=== PATIENT | female | born 1940 | race Caucasian/White ===

== ENCOUNTER 2018-10-05 07:33 | Inpatient (IN) | payer OTHER | END 2018-10-08 15:11 | disposition home or self-care (01) | LOC: TELE-WESTW 10-06 14:16 → ER 07:33 → TELE 07:34 | DX: I21.4 Non-ST elevation (NSTEMI) myocardial infarction (principal); E87.1 Hypo-osmolality and hyponatremia; E44.1 Mild protein-calorie malnutrition; I10 Essential (primary) hypertension; E03.9 Hypothyroidism, unspecified; R00.1 Bradycardia, unspecified ==

== ENCOUNTER 2020-03-19 22:40 | Inpatient (IN) | payer OTHER ==
[~2020-03-19] VITALS: Ht 165.1 cm; Wt 75.4 kg
[~2020-03-19 22:40] MED LIST: AML5T PO; ASPI-394 PO; ATOR20TA50 PO; LEVO75TA6 PO; LISI-648 PO
[2020-03-20 00:28] LABS: Basophils # (auto) 0.2 10 ^3/uL (0-0.2); Eosinophils # (auto) 0 10 ^3/uL (0-0.8); Eosinophils % (auto) 0.1 % (0.0-7.0); Hematocrit 44.2 % (36.0-46.0); Hemoglobin 14.5 g/dL (12.2-16.2); Lymphocytes % (auto) 5.2 % (10.0-50.0); Mean Corpuscular Hemoglobin 30.5 pg (28.0-32.0); Mean Corpuscular Hgb Conc. 32.7 g/dL (32.0-36.0); Mean Corpuscular Volume 93.1 fL (80.0-100.0); Monocytes # (auto) 0.7 10 ^3/uL (0-1.3); Monocytes % (auto) 3.4 % (0.0-12.0); Neutrophils # (auto) 17.7 10 ^3/uL (1.6-8.6); Neutrophils % (auto) 90.3 % (37.0-80.0); Nucleated Red Blood Cells % 0.1 %; Platelet Count (auto) 315 10^3/uL (140-450); Red Blood Cells 4.74 10^6/uL (4.0-5.20); Red Cell Distribution Width 14.9 % (11.8-14.3); White Blood Cell 19.6 10^3/uL (4.4-10.8)
[2020-03-20 00:45] LABS: Alanine Aminotransferase 15 U/L (13-56); Albumin 3.7 g/dL (3.4-5.0); Amylase 56 U/L (25-115); Anion Gap 9 (5-15); Aspartate Aminotransferase 15 U/L (15-37); BUN/Creatinine Ratio 21.9; Blood Urea Nitrogen 25 mg/dL (7-18); Calcium 9.6 mg/dL (8.5-10.1); Carbon Dioxide 26 mmol/L (21-32); Chloride 103 mmol/L (98-107); GFR African American 59 mL/min; GFR Non-African American 49 mL/min; Glucose 119 mg/dL (74-106); Lipase 107 U/L (73-393); Potassium 3.8 mmol/L (3.5-5.1); Sodium 138 mmol/L (136-145)
[2020-03-20 00:50] LABS: Alkaline Phosphatase 68 U/L (45-117); Bilirubin, Total 0.5 mg/dL (0.2-1.0); Total Protein 7.2 g/dL (6.4-8.2)
[2020-03-20 00:55] LABS: INR 1.04 (0.9-1.15); Partial Thromboplastin Time 27.9 sec (23.0-31.2)
[2020-03-20] MEDS ORDERED: MORPHINE SULF INJ 2 MG/ML SYRINGE 1ML IV ONE ×2 (04:00→05:45)
[2020-03-20] MEDS ORDERED: SODIUM CHLORIDE 0.9% 1,000 ML IV ONE ×3 (04:00→13:30)
[2020-03-20] MEDS ORDERED: ONDANSETRON HCL 4 MG/2 ML VIAL IV ONE ×2 (04:00→11:30)
[2020-03-20] MEDS ORDERED: PIPERACILLIN-TAZOB 3.375GM 100 ML IV ONE (05:45)
[2020-03-20] MEDS ORDERED: MORPHINE SULFATE 4 MG/ML SYR/VIAL IV ONE (11:30)
[2020-03-20] MEDS ORDERED: ACETAMINOPHEN 650 MG RECT SUPP PR PRN (13:30)
[2020-03-20] MEDS ORDERED: NITROGLYCERIN 0.4 MG SL TAB SL PRN (13:30)
[2020-03-20] MEDS ORDERED: MORPHINE SULF INJ 2 MG/ML SYRINGE 1ML IV PRN (13:30)
[2020-03-20] MEDS ORDERED: LABETALOL HCL 5 MG/ML 4ML SYRINGE IV ONE (13:30)
[2020-03-20] MEDS ORDERED: GASTROGRAFIN 120 ML SOL ONE (14:03)
[2020-03-20] MEDS: D5W/ SOD CHL 0.9%/KCL 20MEQ 1,000 ML IV SCH ×2 (16:21→21:30)
[2020-03-20] MEDS: ONDANSETRON HCL 4 MG/2 ML VIAL IV PRN (17:13)
[2020-03-20 17:42] LABS: Urine Bacteria NONE SEEN /hpf (None Seen); Urine Blood 1+ /uL (Negative); Urine Hyaline Cast FEW /lpf (0 - 2); Urine Mucus FEW (None Seen); Urine Specific Gravity 1.019 (1.001-1.035); Urine WBC 2 /hpf (0 - 5)
[2020-03-20] MEDS: hydrALAZINE HCL 20 MG/ML VL IV PRN (17:52)
[2020-03-20] MEDS: PIPERACILLIN-TAZOB 3.375GM 100 ML IV SCH (18:03)
[2020-03-20] MEDS: MORPHINE SULF INJ 2 MG/ML SYRINGE 1ML IV PRN (19:09)
[2020-03-20 23:00] VITALS: BP 166/100
[2020-03-20] MEDS ORDERED: LEVO50TA7 PO (23:49)
[2020-03-21] MEDS: ONDANSETRON HCL 4 MG/2 ML VIAL IV PRN (00:12)
[2020-03-21] MEDS: PIPERACILLIN-TAZOB 3.375GM 100 ML IV SCH ×4 (00:14→18:49)
[2020-03-21 05:00] VITALS: BP 130/82
[2020-03-21] MEDS: D5W/ SOD CHL 0.9%/KCL 20MEQ 1,000 ML IV SCH ×2 (05:30→21:45)
[2020-03-21 06:28] LABS: Basophils # (auto) 0 10 ^3/uL (0-0.2); Basophils % (auto) 0.2 % (0.0-2.0); Eosinophils # (auto) 0 10 ^3/uL (0-0.8); Hematocrit 41.5 % (36.0-46.0); Hemoglobin 14.2 g/dL (12.2-16.2); Lymphocytes # (auto) 0.6 10 ^3/uL (0.4-5.4); Lymphocytes % (auto) 6.2 % (10.0-50.0); Mean Corpuscular Hemoglobin 31.6 pg (28.0-32.0); Mean Corpuscular Hgb Conc. 34.1 g/dL (32.0-36.0); Mean Corpuscular Volume 92.5 fL (80.0-100.0); Monocytes # (auto) 0.9 10 ^3/uL (0-1.3); Monocytes % (auto) 8.7 % (0.0-12.0); Neutrophils # (auto) 8.4 10 ^3/uL (1.6-8.6); Neutrophils % (auto) 84.9 % (37.0-80.0); Platelet Count (auto) 277 10^3/uL (140-450); Red Blood Cells 4.49 10^6/uL (4.0-5.20); Red Cell Distribution Width 14.7 % (11.8-14.3); White Blood Cell 9.9 10^3/uL (4.4-10.8)
[2020-03-21 06:40] LABS: Potassium 3.5 mmol/L (3.5-5.1)
[2020-03-21 08:00] VITALS: BP 147/85
[2020-03-21] MEDS: FAMOTIDINE (10MG/ML) 2ML VL IV SCH (10:26)
[2020-03-21] MEDS: MORPHINE SULF INJ 2 MG/ML SYRINGE 1ML IV PRN ×2 (10:27→17:05)
[2020-03-21 16:00] VITALS: BP 154/71
[2020-03-21] MEDS ORDERED: VANCOMYCIN 1GM/250ML 250 ML IV ONE (18:15)
[2020-03-21 20:00] VITALS: BP 207/90
[2020-03-21 22:03] VITALS: BP 158/75
[2020-03-22] MEDS: PIPERACILLIN-TAZOB 3.375GM 100 ML IV SCH ×4 (00:32→18:38)
[2020-03-22] MEDS: D5W/ SOD CHL 0.9%/KCL 20MEQ 1,000 ML IV SCH ×3 (00:32→17:45)
[2020-03-22 05:00] VITALS: BP 145/72
[2020-03-22 07:24] LABS: Basophils # (auto) 0 10 ^3/uL (0-0.2); Basophils % (auto) 0.3 % (0.0-2.0); Eosinophils # (auto) 0.1 10 ^3/uL (0-0.8); Hematocrit 41.9 % (36.0-46.0); Hemoglobin 14.1 g/dL (12.2-16.2); Lymphocytes # (auto) 1.4 10 ^3/uL (0.4-5.4); Lymphocytes % (auto) 14.2 % (10.0-50.0); Mean Corpuscular Hemoglobin 31.6 pg (28.0-32.0); Mean Corpuscular Hgb Conc. 33.7 g/dL (32.0-36.0); Mean Corpuscular Volume 93.9 fL (80.0-100.0); Monocytes # (auto) 1.1 10 ^3/uL (0-1.3); Monocytes % (auto) 10.9 % (0.0-12.0); Neutrophils # (auto) 7.3 10 ^3/uL (1.6-8.6); Neutrophils % (auto) 73.6 % (37.0-80.0); Nucleated Red Blood Cells % 0.1 %; Platelet Count (auto) 246 10^3/uL (140-450); Red Blood Cells 4.46 10^6/uL (4.0-5.20); Red Cell Distribution Width 15.3 % (11.8-14.3); White Blood Cell 9.9 10^3/uL (4.4-10.8)
[2020-03-22 07:49] LABS: Potassium 3.5 mmol/L (3.5-5.1)
[2020-03-22 07:54] LABS: BUN/Creatinine Ratio 35.2
[2020-03-22 08:00] VITALS: BP 155/72
[2020-03-22] MEDS ORDERED: VANCOMYCIN 1GM/250ML 250 ML IV ONE (09:00)
[2020-03-22] MEDS: FAMOTIDINE (10MG/ML) 2ML VL IV SCH (09:43)
[2020-03-22] MEDS: MORPHINE SULF INJ 2 MG/ML SYRINGE 1ML IV PRN ×3 (09:44→22:45)
[2020-03-22] MEDS ORDERED: LEVOTHYROXINE SODIUM 100 MCG/5 ML INJ IV ONE (14:15)
[2020-03-22 16:00] VITALS: BP 133/99
[2020-03-22] MEDS ORDERED: LACTULOSE 20Gm/30ML SOLN PR ONE (18:00)
[2020-03-22] MEDS ORDERED: LACTULOSE 10g/15ml SOLN PR ONE (18:30)
[2020-03-22 22:00] VITALS: BP 148/76
[2020-03-23] MEDS: D5W/ SOD CHL 0.9%/KCL 20MEQ 1,000 ML IV SCH ×3 (03:45→23:45)
[2020-03-23 05:30] VITALS: BP 141/77
[2020-03-23] MEDS: PIPERACILLIN-TAZOB 3.375GM 100 ML IV SCH ×5 (05:33→23:14)
[2020-03-23] MEDS: LEVOTHYROXINE SODIUM 88 MCG TAB PO SCH ×2 (06:24→06:26)
[2020-03-23 08:00] VITALS: BP 153/87
[2020-03-23] MEDS: FAMOTIDINE (10MG/ML) 2ML VL IV SCH (08:54)
[2020-03-23] MEDS: MORPHINE SULF INJ 2 MG/ML SYRINGE 1ML IV PRN ×3 (08:55→23:14)
[2020-03-23 16:00] VITALS: BP 125/82
[2020-03-23 22:00] VITALS: BP 167/66
[2020-03-24 05:00] VITALS: BP 142/69
[2020-03-24] MEDS: LEVOTHYROXINE SODIUM 88 MCG TAB PO SCH (05:30)
[2020-03-24] MEDS: PIPERACILLIN-TAZOB 3.375GM 100 ML IV SCH ×4 (05:30→23:44)
[2020-03-24 08:00] VITALS: BP 146/93
[2020-03-24] MEDS: MORPHINE SULF INJ 2 MG/ML SYRINGE 1ML IV PRN ×3 (08:16→23:18)
[2020-03-24] MEDS ORDERED: GOLYTELY 4L KIT PO ONE (10:15)
[2020-03-24] MEDS: FAMOTIDINE (10MG/ML) 2ML VL IV SCH (10:59)
[2020-03-24 16:00] VITALS: BP 139/94
[2020-03-24] MEDS: D5W/ SOD CHL 0.9%/KCL 20MEQ 1,000 ML IV SCH ×2 (17:43→21:28)
[2020-03-24] MEDS: hydrALAZINE HCL 20 MG/ML VL IV PRN (21:40)
[2020-03-24 22:00] VITALS: BP 181/91
[2020-03-24] MEDS: ONDANSETRON HCL 4 MG/2 ML VIAL IV PRN (23:18)
[2020-03-25] MEDS: MORPHINE SULF INJ 2 MG/ML SYRINGE 1ML IV PRN (03:42)
[2020-03-25] MEDS: ONDANSETRON HCL 4 MG/2 ML VIAL IV PRN (05:45)
[2020-03-25] MEDS: PIPERACILLIN-TAZOB 3.375GM 100 ML IV SCH ×3 (05:45→18:04)
[2020-03-25] MEDS: D5W/ SOD CHL 0.9%/KCL 20MEQ 1,000 ML IV SCH ×3 (05:45→18:04)
[2020-03-25] MEDS: LEVOTHYROXINE SODIUM 88 MCG TAB PO SCH (05:46)
[2020-03-25 08:05] VITALS: BP 153/84
[2020-03-25] MEDS: FAMOTIDINE (10MG/ML) 2ML VL IV SCH (09:57)
[2020-03-25 12:59] LABS: INR 1.61 (0.9-1.15); Partial Thromboplastin Time 31.2 sec (23.0-31.2)
[2020-03-25] MEDS ORDERED: MIDAZOLAM HCL 1MG/1ML-2 ML VIAL ONE (13:31)
[2020-03-25] MEDS ORDERED: LIDOCAINE 2% (LOCAL ANESTH.) PF 5ml SDV ONE (13:32)
[2020-03-25] MEDS ORDERED: fentaNYL CITRATE 100 MCG/2 ML VL ONE (13:41)
[2020-03-25] MEDS ORDERED: PHENYLEPHRINE HCL 10 MG/ML VL ONE (13:49)
[2020-03-25] MEDS ORDERED: SODIUM CHLORIDE LOCK 10 ML ONE (13:49)
[2020-03-25] MEDS ORDERED: GLYCOPYRROLATE 0.2 MG/ML 1ML VIAL ONE (14:55)
[2020-03-25] MEDS ORDERED: HYDROmorphone HCL 2 MG/ML VL ONE (15:01)
[2020-03-25] MEDS ORDERED: HYDROmorphone HCL 2 MG/ML VL IV PRN (15:45)
[2020-03-25] MEDS ORDERED: ONDANSETRON HCL 4 MG/2 ML VIAL IV PRN (15:45)
[2020-03-25 17:35] VITALS: BP 121/37
[2020-03-25 20:00] VITALS: BP 102/70
[2020-03-26] MEDS: HYDROmorphone HCL 2 MG/ML VL IV PRN ×3 (00:17→20:15)
[2020-03-26] MEDS: PIPERACILLIN-TAZOB 3.375GM 100 ML IV SCH ×4 (00:18→20:24)
[2020-03-26] MEDS ORDERED: ALBUMIN 5% 250 ML IV ONE ×2 (00:44→00:45)
[2020-03-26 02:34] LABS: Hematocrit 41.9 % (36.0-46.0); Hemoglobin 13.8 g/dL (12.2-16.2)
[2020-03-26] MEDS: D5W/ SOD CHL 0.9%/KCL 20MEQ 1,000 ML IV SCH ×3 (02:41→20:23)
[2020-03-26 05:19] VITALS: BP 98/49
[2020-03-26] MEDS: LEVOTHYROXINE SODIUM 88 MCG TAB PO SCH (06:06)
[2020-03-26 06:52] LABS: Albumin 2.1 g/dL (3.4-5.0); Calcium 7.4 mg/dL (8.5-10.1); Potassium 3.1 mmol/L (3.5-5.1)
[2020-03-26 07:01] LABS: Basophils # (auto) 0 10 ^3/uL (0-0.2); Basophils % (auto) 0.1 % (0.0-2.0); Eosinophils # (auto) 0 10 ^3/uL (0-0.8); Hematocrit 39.6 % (36.0-46.0); Hemoglobin 12.8 g/dL (12.2-16.2); Lymphocytes # (auto) 0.9 10 ^3/uL (0.4-5.4); Lymphocytes % (auto) 4.2 % (10.0-50.0); Mean Corpuscular Hemoglobin 30.4 pg (28.0-32.0); Mean Corpuscular Hgb Conc. 32.2 g/dL (32.0-36.0); Mean Corpuscular Volume 94.4 fL (80.0-100.0); Monocytes # (auto) 0.9 10 ^3/uL (0-1.3); Monocytes % (auto) 4.1 % (0.0-12.0); Neutrophils # (auto) 19.6 10 ^3/uL (1.6-8.6); Neutrophils % (auto) 91.6 % (37.0-80.0); Platelet Count (auto) 226 10^3/uL (140-450); Red Blood Cells 4.19 10^6/uL (4.0-5.20); Red Cell Distribution Width 15.1 % (11.8-14.3); White Blood Cell 21.4 10^3/uL (4.4-10.8)
[2020-03-26 07:02] LABS: BUN/Creatinine Ratio 17.3; Bilirubin, Total 0.5 mg/dL (0.2-1.0); Total Protein 4.3 g/dL (6.4-8.2)
[2020-03-26 08:00] VITALS: BP 104/69
[2020-03-26 08:20] VITALS: BP 104/69
[2020-03-26] MEDS: FAMOTIDINE (10MG/ML) 2ML VL IV SCH (09:07)
[2020-03-26] MEDS ORDERED: CLINIMIX PER PHARMACY 0 ML IV SCH (11:15)
[2020-03-26] MEDS ORDERED: POTASSIUM CHLORIDE 20 MEQ, LIDOCAINE 1% (LOCAL ANESTH.) 2 ML in SODIUM CHL 0.9% 100 ML IV ONE (11:45)
[2020-03-26 13:23] LABS: Magnesium 1.8 mg/dL (1.6-2.6)
[2020-03-26 13:30] LABS: Phosphorus 3.9 mg/dL (2.5-4.90); Pre Albumin 8.9 mg/dL (20.0-40.0)
[2020-03-26 16:00] VITALS: BP 108/53
[2020-03-26] MEDS: AMINO ACID INFUSION IN D10W 1,000 ML IV NR ×2 (20:00→23:39)
[2020-03-26 22:00] VITALS: BP 117/43
[2020-03-26] MEDS: ACCU-CHEK COMFORT CURVE STRIP VI SCH (23:55)
[2020-03-26] MEDS: InsuLIN REG 1unit/0.01ml Soln (100units/ml) SC SCH (23:55)
[2020-03-27] MEDS ORDERED: DEXTROSE (50%) 50ML SYRG IV SCH
[2020-03-27 05:00] VITALS: BP 126/56
[2020-03-27] MEDS: PIPERACILLIN-TAZOB 3.375GM 100 ML IV SCH (05:02)
[2020-03-27] MEDS: InsuLIN REG 1unit/0.01ml Soln (100units/ml) SC SCH ×4 (05:02→23:24)
[2020-03-27] MEDS: ACCU-CHEK COMFORT CURVE STRIP VI SCH ×4 (05:03→23:24)
[2020-03-27] MEDS: LEVOTHYROXINE SODIUM 88 MCG TAB PO SCH (05:35)
[2020-03-27 07:12] LABS: Basophils # (auto) 0.1 10 ^3/uL (0-0.2); Basophils % (auto) 0.3 % (0.0-2.0); Eosinophils # (auto) 0 10 ^3/uL (0-0.8); Eosinophils % (auto) 0.1 % (0.0-7.0); Hemoglobin 11.7 g/dL (12.2-16.2); Lymphocytes # (auto) 0.7 10 ^3/uL (0.4-5.4); Lymphocytes % (auto) 3.4 % (10.0-50.0); Mean Corpuscular Hemoglobin 31.9 pg (28.0-32.0); Mean Corpuscular Hgb Conc. 34.4 g/dL (32.0-36.0); Mean Corpuscular Volume 92.6 fL (80.0-100.0); Monocytes # (auto) 1.3 10 ^3/uL (0-1.3); Monocytes % (auto) 6.4 % (0.0-12.0); Neutrophils # (auto) 18.1 10 ^3/uL (1.6-8.6); Neutrophils % (auto) 89.8 % (37.0-80.0); Platelet Count (auto) 199 10^3/uL (140-450); Red Blood Cells 3.67 10^6/uL (4.0-5.20); Red Cell Distribution Width 15.7 % (11.8-14.3); White Blood Cell 20.1 10^3/uL (4.4-10.8)
[2020-03-27 07:21] LABS: Albumin 1.9 g/dL (3.4-5.0); Calcium 7.5 mg/dL (8.5-10.1); Magnesium 1.7 mg/dL (1.6-2.6); Potassium 3.5 mmol/L (3.5-5.1)
[2020-03-27 07:23] LABS: BUN/Creatinine Ratio 14.6; Bilirubin, Total 0.3 mg/dL (0.2-1.0); Phosphorus 1.5 mg/dL (2.5-4.90); Total Protein 5.1 g/dL (6.4-8.2)
[2020-03-27] MEDS: D5W/ SOD CHL 0.9%/KCL 20MEQ 1,000 ML IV SCH (08:10)
[2020-03-27 08:12] VITALS: BP 124/68
[2020-03-27 08:20] VITALS: BP 124/68
[2020-03-27] MEDS ORDERED: POTASSIUM PHOSPHATE 26.4 MEQ in SODIUM CHL 0.9% 100 ML IV ONE (09:15)
[2020-03-27] MEDS ORDERED: SODIUM CHLORIDE 0.9% 250 ML IV ONE (11:00)
[2020-03-27] MEDS ORDERED: levoFLOXacin 250MG 50 ML IV ONE (11:15)
[2020-03-27] MEDS: SODIUM CHLORIDE 0.9% 1,000 ML IV SCH ×2 (11:18→21:51)
[2020-03-27] MEDS: FAMOTIDINE (10MG/ML) 2ML VL IV SCH (14:00)
[2020-03-27] MEDS: metroNIDAZOLE 500MG/100ML 100 ML IV SCH ×2 (14:03→21:51)
[2020-03-27 16:05] VITALS: BP 125/56
[2020-03-27] MEDS: AMINO ACID INFUSION IN D10W 1,000 ML IV NR ×2 (19:10→19:17)
[2020-03-27 22:00] VITALS: BP 152/77
[2020-03-28 05:00] VITALS: BP 145/66
[2020-03-28] MEDS: metroNIDAZOLE 500MG/100ML 100 ML IV SCH ×3 (05:05→22:00)
[2020-03-28] MEDS: InsuLIN REG 1unit/0.01ml Soln (100units/ml) SC SCH ×3 (05:09→18:00)
[2020-03-28] MEDS: ACCU-CHEK COMFORT CURVE STRIP VI SCH ×3 (05:10→18:20)
[2020-03-28] MEDS: LEVOTHYROXINE SODIUM 88 MCG TAB PO SCH (06:09)
[2020-03-28] MEDS: SODIUM CHLORIDE 0.9% 1,000 ML IV SCH ×2 (06:10→12:11)
[2020-03-28 06:52] LABS: Basophils # (auto) 0 10 ^3/uL (0-0.2); Basophils % (auto) 0.1 % (0.0-2.0); Eosinophils # (auto) 0.1 10 ^3/uL (0-0.8); Eosinophils % (auto) 0.3 % (0.0-7.0); Hemoglobin 10.9 g/dL (12.2-16.2); Lymphocytes # (auto) 0.6 10 ^3/uL (0.4-5.4); Lymphocytes % (auto) 3.3 % (10.0-50.0); Mean Corpuscular Hemoglobin 31.1 pg (28.0-32.0); Mean Corpuscular Hgb Conc. 34.2 g/dL (32.0-36.0); Monocytes # (auto) 0.5 10 ^3/uL (0-1.3); Monocytes % (auto) 2.5 % (0.0-12.0); Neutrophils # (auto) 17.9 10 ^3/uL (1.6-8.6); Neutrophils % (auto) 93.8 % (37.0-80.0); Platelet Count (auto) 204 10^3/uL (140-450); Red Blood Cells 3.52 10^6/uL (4.0-5.20); Red Cell Distribution Width 15.6 % (11.8-14.3); White Blood Cell 19.1 10^3/uL (4.4-10.8)
[2020-03-28 07:07] LABS: Albumin 1.8 g/dL (3.4-5.0); Calcium 7.7 mg/dL (8.5-10.1); Magnesium 1.7 mg/dL (1.6-2.6); Potassium 3.2 mmol/L (3.5-5.1)
[2020-03-28 07:11] LABS: Bilirubin, Total 0.3 mg/dL (0.2-1.0); Phosphorus 1.5 mg/dL (2.5-4.90); Total Protein 5.1 g/dL (6.4-8.2)
[2020-03-28 08:00] VITALS: BP 144/80
[2020-03-28] MEDS: FAMOTIDINE (10MG/ML) 2ML VL IV SCH (09:47)
[2020-03-28] MEDS: levoFLOXacin 250MG 50 ML IV SCH (09:47)
[2020-03-28] MEDS ORDERED: POTASSIUM CHLORIDE 20 MEQ, LIDOCAINE 1% (LOCAL ANESTH.) 2 ML in SODIUM CHL 0.9% 100 ML IV ONE (10:45)
[2020-03-28] MEDS ORDERED: POTASSIUM PHOSPHATE 30 MEQ in D5W 5% 250 ML IV ONE (11:00)
[2020-03-28 16:00] VITALS: BP 157/73
[2020-03-28] MEDS: ONDANSETRON HCL 4 MG/2 ML VIAL IV PRN (17:10)
[2020-03-28] MEDS: AMINO ACID INFUSION IN D10W 1,000 ML IV NR (18:21)
[2020-03-28] MEDS ORDERED: AMINO ACID INFUSION IN D10W 1,000 ML IV NR (20:00)
[2020-03-28 21:33] VITALS: BP 152/73
[2020-03-29] MEDS: SODIUM CHLORIDE 0.9% 1,000 ML IV SCH ×2 (00:05→10:45)
[2020-03-29 05:26] VITALS: BP 121/70
[2020-03-29] MEDS: metroNIDAZOLE 500MG/100ML 100 ML IV SCH ×3 (06:00→22:00)
[2020-03-29] MEDS: InsuLIN REG 1unit/0.01ml Soln (100units/ml) SC SCH ×4 (06:00→17:35)
[2020-03-29] MEDS: ACCU-CHEK COMFORT CURVE STRIP VI SCH ×4 (06:00→17:35)
[2020-03-29] MEDS: LEVOTHYROXINE SODIUM 88 MCG TAB PO SCH (07:00)
[2020-03-29 07:29] LABS: Basophils # (auto) 0 10 ^3/uL (0-0.2); Basophils % (auto) 0.3 % (0.0-2.0); Eosinophils # (auto) 0.1 10 ^3/uL (0-0.8); Eosinophils % (auto) 0.9 % (0.0-7.0); Hematocrit 30.6 % (36.0-46.0); Hemoglobin 10.6 g/dL (12.2-16.2); Lymphocytes # (auto) 0.7 10 ^3/uL (0.4-5.4); Lymphocytes % (auto) 5.1 % (10.0-50.0); Mean Corpuscular Hemoglobin 31.7 pg (28.0-32.0); Mean Corpuscular Hgb Conc. 34.7 g/dL (32.0-36.0); Mean Corpuscular Volume 91.5 fL (80.0-100.0); Monocytes # (auto) 0.6 10 ^3/uL (0-1.3); Neutrophils # (auto) 12.6 10 ^3/uL (1.6-8.6); Neutrophils % (auto) 89.7 % (37.0-80.0); Platelet Count (auto) 196 10^3/uL (140-450); Red Blood Cells 3.35 10^6/uL (4.0-5.20); Red Cell Distribution Width 15.6 % (11.8-14.3); White Blood Cell 14.1 10^3/uL (4.4-10.8)
[2020-03-29 07:50] LABS: Calcium 7.8 mg/dL (8.5-10.1); Potassium 3.3 mmol/L (3.5-5.1)
[2020-03-29 07:53] LABS: BUN/Creatinine Ratio 22.4
[2020-03-29 08:00] VITALS: BP 139/78
[2020-03-29] MEDS: levoFLOXacin 250MG 50 ML IV SCH (09:29)
[2020-03-29] MEDS: FAMOTIDINE (10MG/ML) 2ML VL IV SCH (09:29)
[2020-03-29] MEDS ORDERED: POTASSIUM CHLORIDE 20 MEQ, LIDOCAINE 1% (LOCAL ANESTH.) 2 ML in SODIUM CHL 0.9% 100 ML IV ONE (10:45)
[2020-03-29 11:15] LABS: Magnesium 1.6 mg/dL (1.6-2.6); Phosphorus 1.8 mg/dL (2.5-4.90)
[2020-03-29 11:19] LABS: Albumin 1.7 g/dL (3.4-5.0); Bilirubin, Direct 0.1 mg/dL (0-0.2)
[2020-03-29 11:21] LABS: Bilirubin, Total 0.3 mg/dL (0.2-1.0)
[2020-03-29] MEDS ORDERED: POTASSIUM PHOSPHATE 26.4 MEQ in SODIUM CHL 0.9% 100 ML IV ONE (13:00)
[2020-03-29] MEDS ORDERED: MAGNESIUM SULFATE 1GM/100ML 100 ML IV ONE (15:00)
[2020-03-29 16:00] VITALS: BP 143/70
[2020-03-29] MEDS ORDERED: AMINO ACID INFUSION IN D10W 1,000 ML IV NR (20:00)
[2020-03-29 22:26] VITALS: BP 157/80
[2020-03-30] MEDS: ACCU-CHEK COMFORT CURVE STRIP VI SCH ×4 (00:40→18:40)
[2020-03-30 05:30] VITALS: BP 151/94
[2020-03-30] MEDS: InsuLIN REG 1unit/0.01ml Soln (100units/ml) SC SCH ×4 (06:00→18:00)
[2020-03-30] MEDS: metroNIDAZOLE 500MG/100ML 100 ML IV SCH ×3 (06:02→23:49)
[2020-03-30] MEDS: LEVOTHYROXINE SODIUM 88 MCG TAB PO SCH (06:03)
[2020-03-30] MEDS: SODIUM CHLORIDE 0.9% 1,000 ML IV SCH (06:03)
[2020-03-30 07:28] LABS: Basophils # (auto) 0 10 ^3/uL (0-0.2); Basophils % (auto) 0.1 % (0.0-2.0); Eosinophils # (auto) 0.2 10 ^3/uL (0-0.8); Eosinophils % (auto) 1.7 % (0.0-7.0); Hematocrit 31.8 % (36.0-46.0); Hemoglobin 10.8 g/dL (12.2-16.2); Lymphocytes # (auto) 0.7 10 ^3/uL (0.4-5.4); Lymphocytes % (auto) 6.7 % (10.0-50.0); Mean Corpuscular Hemoglobin 31.2 pg (28.0-32.0); Mean Corpuscular Volume 91.9 fL (80.0-100.0); Monocytes # (auto) 0.9 10 ^3/uL (0-1.3); Monocytes % (auto) 8.4 % (0.0-12.0); Neutrophils % (auto) 83.1 % (37.0-80.0); Platelet Count (auto) 187 10^3/uL (140-450); Red Blood Cells 3.46 10^6/uL (4.0-5.20); White Blood Cell 10.8 10^3/uL (4.4-10.8)
[2020-03-30 07:45] LABS: Potassium 3.3 mmol/L (3.5-5.1)
[2020-03-30 07:46] LABS: Albumin 1.6 g/dL (3.4-5.0); Calcium 7.8 mg/dL (8.5-10.1); Magnesium 2.1 mg/dL (1.6-2.6)
[2020-03-30 07:53] LABS: BUN/Creatinine Ratio 27.1; Bilirubin, Direct 0.1 mg/dL (0-0.2); Bilirubin, Total 0.3 mg/dL (0.2-1.0); Phosphorus 1.8 mg/dL (2.5-4.90); Total Protein 4.8 g/dL (6.4-8.2)
[2020-03-30 08:00] VITALS: BP 147/61
[2020-03-30] MEDS: FAMOTIDINE (10MG/ML) 2ML VL IV SCH (10:38)
[2020-03-30] MEDS: levoFLOXacin 250MG 50 ML IV SCH (10:38)
[2020-03-30] MEDS ORDERED: POTASSIUM PHOSPHATE IV ONE (11:30)
[2020-03-30] MEDS ORDERED: D5W 5% IV ONE (11:30)
[2020-03-30] MEDS ORDERED: POTASSIUM PHOSPHATE 26.4 MEQ in SODIUM CHL 0.9% 100 ML IV ONE (12:00)
[2020-03-30 16:00] VITALS: BP 156/76
[2020-03-30 20:00] VITALS: BP 160/85
[2020-03-30] MEDS ORDERED: CLINIMIX PER PHARMACY IV NR ×5 (20:00)
[2020-03-30 22:00] VITALS: BP 160/85
[2020-03-31] MEDS: HYDROmorphone HCL 2 MG/ML VL IV PRN (00:38)
[2020-03-31] MEDS: ONDANSETRON HCL 4 MG/2 ML VIAL IV PRN (00:39)
[2020-03-31 05:00] VITALS: BP 162/75
[2020-03-31] MEDS: InsuLIN REG 1unit/0.01ml Soln (100units/ml) SC SCH ×4 (06:00→18:00)
[2020-03-31] MEDS: metroNIDAZOLE 500MG/100ML 100 ML IV SCH ×3 (06:04→22:00)
[2020-03-31] MEDS: SODIUM CHLORIDE 0.9% 1,000 ML IV SCH ×2 (06:04→23:14)
[2020-03-31] MEDS: ACCU-CHEK COMFORT CURVE STRIP VI SCH ×4 (06:04→18:00)
[2020-03-31] MEDS: LEVOTHYROXINE SODIUM 88 MCG TAB PO SCH (06:05)
[2020-03-31 07:54] LABS: Calcium 7.5 mg/dL (8.5-10.1); Potassium 3.2 mmol/L (3.5-5.1)
[2020-03-31 08:00] VITALS: BP 149/80
[2020-03-31 08:00] LABS: Albumin 1.7 g/dL (3.4-5.0); BUN/Creatinine Ratio 28.2; Bilirubin, Total 0.3 mg/dL (0.2-1.0); Magnesium 1.8 mg/dL (1.6-2.6); Phosphorus 2.5 mg/dL (2.5-4.90); Total Protein 4.7 g/dL (6.4-8.2)
[2020-03-31] MEDS ORDERED: POTASSIUM PHOSPHATE 44 MEQ in D5W 5% 250 ML IV ONE (09:45)
[2020-03-31] MEDS ORDERED: POTASSIUM CHLORIDE 60 MEQ, LIDOCAINE 1% (LOCAL ANESTH.) 6 ML in SODIUM CHL 0.9% 500 ML IV ONE (10:00)
[2020-03-31] MEDS: levoFLOXacin 250MG 50 ML IV SCH (10:47)
[2020-03-31] MEDS: FAMOTIDINE (10MG/ML) 2ML VL IV SCH (10:48)
[2020-03-31 15:47] VITALS: BP 154/81
[2020-03-31] MEDS ORDERED: AMINO ACID INFUSION IN D10W 1,000 ML IV NR (20:00)
[2020-03-31 22:00] VITALS: BP 148/75
[2020-04-01 05:00] VITALS: BP 169/87
[2020-04-01] MEDS: metroNIDAZOLE 500MG/100ML 100 ML IV SCH ×3 (05:34→22:15)
[2020-04-01] MEDS: hydrALAZINE HCL 20 MG/ML VL IV PRN (05:47)
[2020-04-01] MEDS: InsuLIN REG 1unit/0.01ml Soln (100units/ml) SC SCH ×4 (06:00→18:00)
[2020-04-01] MEDS: ACCU-CHEK COMFORT CURVE STRIP VI SCH ×4 (06:17→18:02)
[2020-04-01] MEDS: LEVOTHYROXINE SODIUM 88 MCG TAB PO SCH (06:19)
[2020-04-01 07:38] LABS: Potassium 3.6 mmol/L (3.5-5.1)
[2020-04-01 07:46] LABS: Albumin 1.9 g/dL (3.4-5.0); BUN/Creatinine Ratio 26.4; Bilirubin, Total 0.4 mg/dL (0.2-1.0); Calcium 7.7 mg/dL (8.5-10.1); Phosphorus 1.2 mg/dL (2.5-4.90); Total Protein 5.1 g/dL (6.4-8.2)
[2020-04-01] MEDS: FAMOTIDINE (10MG/ML) 2ML VL IV SCH (09:35)
[2020-04-01] MEDS: levoFLOXacin 250MG 50 ML IV SCH (09:35)
[2020-04-01 10:04] VITALS: BP 152/81
[2020-04-01] MEDS ORDERED: POTASSIUM PHOSPHATE 26.4 MEQ in SODIUM CHL 0.9% 100 ML IV ONE (10:45)
[2020-04-01] MEDS ORDERED: HYDROmorphone HCL 2 MG/ML VL IV PRN (10:45)
[2020-04-01] MEDS ORDERED: GASTROGRAFIN 120 ML SOL ONE (11:56)
[2020-04-01 17:01] VITALS: BP 159/90
[2020-04-01] MEDS: SODIUM CHLORIDE 0.9% 1,000 ML IV SCH (18:32)
[2020-04-01] MEDS: ACETAMINOPHEN/CODEINE#3 (300/30mg) TAB PO PRN (20:57)
[2020-04-01 22:00] VITALS: BP 159/71
[2020-04-02] MEDS: ACCU-CHEK COMFORT CURVE STRIP VI SCH ×4 (00:02→18:05)
[2020-04-02 05:00] VITALS: BP 159/82
[2020-04-02] MEDS: InsuLIN REG 1unit/0.01ml Soln (100units/ml) SC SCH ×4 (06:00→18:00)
[2020-04-02] MEDS: metroNIDAZOLE 500MG/100ML 100 ML IV SCH ×3 (06:09→21:08)
[2020-04-02] MEDS: LEVOTHYROXINE SODIUM 88 MCG TAB PO SCH (06:18)
[2020-04-02 07:13] LABS: Hematocrit 33.8 % (36.0-46.0); Mean Corpuscular Hemoglobin 31.5 pg (28.0-32.0); Mean Corpuscular Hgb Conc. 32.5 g/dL (32.0-36.0); Mean Corpuscular Volume 97.1 fL (80.0-100.0); Platelet Count (auto) 224 10^3/uL (140-450); Red Blood Cells 3.48 10^6/uL (4.0-5.20); Red Cell Distribution Width 16.9 % (11.8-14.3); White Blood Cell 12.7 10^3/uL (4.4-10.8)
[2020-04-02 07:17] LABS: Albumin 1.9 g/dL (3.4-5.0); Basophils % (manual) 0 (0.0-2.0); Blast Cells 0; Calcium 7.6 mg/dL (8.5-10.1); Magnesium 1.9 mg/dL (1.6-2.6); Myelocytes % 0; Potassium 3.8 mmol/L (3.5-5.1); Promyelocytes % 0; Reactive Lymphocytes 0
[2020-04-02 07:20] LABS: BUN/Creatinine Ratio 26.8; Bilirubin, Total 0.4 mg/dL (0.2-1.0); Phosphorus 2.5 mg/dL (2.5-4.90); Total Protein 5.2 g/dL (6.4-8.2)
[2020-04-02] MEDS ORDERED: AMINO ACID INFUSION IN D10W 1,000 ML IV NR ×2 (07:45→09:00)
[2020-04-02 08:00] VITALS: BP 146/70
[2020-04-02 08:16] LABS: Band Neutrophils % (manual) 1; Eosinophils % (manual) 4 (0-7); Lymphocytes % (manual) 6 (10.0-50.0); Metamyelocytes % 1; Monocytes % (manual) 4 (0-12)
[2020-04-02] MEDS: levoFLOXacin 250MG 50 ML IV SCH (10:13)
[2020-04-02] MEDS: FAMOTIDINE (10MG/ML) 2ML VL IV SCH (10:14)
[2020-04-02] MEDS: SODIUM CHLORIDE 0.9% 1,000 ML IV SCH (15:01)
[2020-04-02 16:16] VITALS: BP_SYST 131; BP_SYST 159; BP_DIAS 75; BP_DIAS 81
[2020-04-02] MEDS: ACETAMINOPHEN/CODEINE#3 (300/30mg) TAB PO PRN (21:08)
[2020-04-02 21:29] VITALS: BP 152/85
[2020-04-03] MEDS: InsuLIN REG 1unit/0.01ml Soln (100units/ml) SC SCH ×2 (00:30→06:00)
[2020-04-03] MEDS: ACCU-CHEK COMFORT CURVE STRIP VI SCH ×2 (00:30→06:00)
[2020-04-03 05:37] VITALS: BP 157/89
[2020-04-03] MEDS: metroNIDAZOLE 500MG/100ML 100 ML IV SCH ×3 (06:00→21:19)
[2020-04-03] MEDS: LEVOTHYROXINE SODIUM 88 MCG TAB PO SCH (06:59)
[2020-04-03 08:00] VITALS: BP 160/85
[2020-04-03] MEDS: hydrALAZINE HCL 20 MG/ML VL IV PRN (09:21)
[2020-04-03] MEDS: FAMOTIDINE (10MG/ML) 2ML VL IV SCH (09:22)
[2020-04-03] MEDS: levoFLOXacin 250MG 50 ML IV SCH (09:22)
[2020-04-03 09:26] LABS: Albumin 2.1 g/dL (3.4-5.0); BUN/Creatinine Ratio 18.7; Potassium 3.1 mmol/L (3.5-5.1)
[2020-04-03 09:35] LABS: Bilirubin, Total 0.3 mg/dL (0.2-1.0); Total Protein 5.4 g/dL (6.4-8.2)
[2020-04-03] MEDS: SODIUM CHLORIDE 0.9% 1,000 ML IV SCH (10:45)
[2020-04-03] MEDS ORDERED: POTASSIUM CHLORIDE 40 MEQ, LIDOCAINE 1% (LOCAL ANESTH.) 4 ML in SODIUM CHL 0.9% 250 ML IV ONE (11:15)
[2020-04-03 16:00] VITALS: BP 141/80
[2020-04-03] MEDS: ACETAMINOPHEN/CODEINE#3 (300/30mg) TAB PO PRN (18:23)
[2020-04-03 22:00] VITALS: BP 148/68
[2020-04-04 05:41] VITALS: BP 144/64
[2020-04-04] MEDS: metroNIDAZOLE 500MG/100ML 100 ML IV SCH ×3 (05:48→21:54)
[2020-04-04] MEDS: LEVOTHYROXINE SODIUM 88 MCG TAB PO SCH (05:48)
[2020-04-04] MEDS: SODIUM CHLORIDE 0.9% 1,000 ML IV SCH (05:49)
[2020-04-04 06:39] LABS: Basophils # (auto) 0.1 10 ^3/uL (0-0.2); Basophils % (auto) 0.5 % (0.0-2.0); Eosinophils # (auto) 0.2 10 ^3/uL (0-0.8); Eosinophils % (auto) 1.4 % (0.0-7.0); Hematocrit 28.8 % (36.0-46.0); Hemoglobin 9.9 g/dL (12.2-16.2); Lymphocytes # (auto) 0.9 10 ^3/uL (0.4-5.4); Lymphocytes % (auto) 6.9 % (10.0-50.0); Mean Corpuscular Hemoglobin 31.6 pg (28.0-32.0); Mean Corpuscular Hgb Conc. 34.5 g/dL (32.0-36.0); Mean Corpuscular Volume 91.7 fL (80.0-100.0); Monocytes # (auto) 1.1 10 ^3/uL (0-1.3); Monocytes % (auto) 8.6 % (0.0-12.0); Neutrophils # (auto) 10.8 10 ^3/uL (1.6-8.6); Neutrophils % (auto) 82.6 % (37.0-80.0); Nucleated Red Blood Cells % 0.1 %; Platelet Count (auto) 399 10^3/uL (140-450); Red Blood Cells 3.14 10^6/uL (4.0-5.20); Red Cell Distribution Width 15.8 % (11.8-14.3)
[2020-04-04 06:44] LABS: BUN/Creatinine Ratio 18.8; Calcium 7.7 mg/dL (8.5-10.1); Potassium 3.5 mmol/L (3.5-5.1)
[2020-04-04 08:00] VITALS: BP 137/64
[2020-04-04] MEDS: levoFLOXacin 250MG 50 ML IV SCH (09:21)
[2020-04-04] MEDS: FAMOTIDINE (10MG/ML) 2ML VL IV SCH (09:22)
[2020-04-04 16:17] VITALS: BP 159/75
[2020-04-04] MEDS: ACETAMINOPHEN/CODEINE#3 (300/30mg) TAB PO PRN ×2 (16:49→23:31)
[2020-04-04 22:00] VITALS: BP 159/85
[2020-04-05] MEDS: SODIUM CHLORIDE 0.9% 1,000 ML IV SCH (02:25)
[2020-04-05 05:00] VITALS: BP 163/85
[2020-04-05 06:00] LABS: Basophils # (auto) 0.1 10 ^3/uL (0-0.2); Eosinophils # (auto) 0.2 10 ^3/uL (0-0.8); Hematocrit 29.8 % (36.0-46.0); Hemoglobin 10.2 g/dL (12.2-16.2); Lymphocytes # (auto) 1.1 10 ^3/uL (0.4-5.4); Monocytes # (auto) 1.1 10 ^3/uL (0-1.3)
[2020-04-05 06:04] LABS: Basophils % (auto) 0.4 % (0.0-2.0); Eosinophils % (auto) 1.4 % (0.0-7.0); Lymphocytes % (auto) 8.9 % (10.0-50.0); Mean Corpuscular Hemoglobin 31.1 pg (28.0-32.0); Mean Corpuscular Hgb Conc. 34.1 g/dL (32.0-36.0); Mean Corpuscular Volume 91.2 fL (80.0-100.0); Monocytes % (auto) 8.8 % (0.0-12.0); Neutrophils # (auto) 10.1 10 ^3/uL (1.6-8.6); Neutrophils % (auto) 80.5 % (37.0-80.0); Platelet Count (auto) 464 10^3/uL (140-450); Red Blood Cells 3.27 10^6/uL (4.0-5.20); Red Cell Distribution Width 16.2 % (11.8-14.3); White Blood Cell 12.5 10^3/uL (4.4-10.8)
[2020-04-05] MEDS: metroNIDAZOLE 500MG/100ML 100 ML IV SCH ×2 (06:30→14:00)
[2020-04-05] MEDS: LEVOTHYROXINE SODIUM 88 MCG TAB PO SCH (06:30)
[2020-04-05 08:00] VITALS: BP 147/71
[2020-04-05] MEDS: levoFLOXacin 250MG 50 ML IV SCH (09:49)
[2020-04-05] MEDS: FAMOTIDINE (10MG/ML) 2ML VL IV SCH (09:50)
[2020-04-05 14:51] VITALS: BP 147/71
== END 2020-04-05 17:30 | disposition home or self-care (01) | DRG 853 ==
LOC: ER 22:40 → EDBD 22:40 → TELE 22:41 → TELE-CENTR 03-20 22:59 → CENTRAL 04-05 03:13
PROVIDERS: ADMIT Nurse Practitioner Acute Care; ATTEND Internal Medicine
PROC: 0DN80ZZ Release Small Intestine, Open Approach (ICD-10-PCS; 2020-03-25)
PROC: 0DQ80ZZ Repair Small Intestine, Open Approach (ICD-10-PCS; principal; 2020-03-25 13:25)
PROC: 05H933Z Insertion of Infusion Device into Right Brachial Vein, Percutaneous Approach (ICD-10-PCS; 2020-03-29)
PROC: B54MZZA Ultrasonography of Right Upper Extremity Veins, Guidance (ICD-10-PCS; 2020-03-29)
DX: A41.9 Sepsis, unspecified organism (principal); N17.0 Acute kidney failure with tubular necrosis; K63.1 Perforation of intestine (nontraumatic); K56.600 Partial intestinal obstruction, unspecified as to cause; I10 Essential (primary) hypertension; J44.9 Chronic obstructive pulmonary disease, unspecified; E03.9 Hypothyroidism, unspecified; E78.5 Hyperlipidemia, unspecified; E86.0 Dehydration; I25.10 Atherosclerotic heart disease of native coronary artery without angina pectoris; K56.41 Fecal impaction; Z20.822 Contact with and (suspected) exposure to COVID-19; K66.0 Peritoneal adhesions (postprocedural) (postinfection); Z90.49 Acquired absence of other specified parts of digestive tract; Z79.899 Other long term (current) drug therapy; I25.2 Old myocardial infarction; Z88.8 Allergy status to other drugs, medicaments and biological substances; Z72.0 Tobacco use
CPT/HCPCS: 36415; 71045; 74018; 74176; 74250; 80048; 80053; 80076; 81001; 82040; 82150; 82565; 82962; 83605; 83690; 83735; 83880; 84100; 84443; 84478; 84484; 85007; 85014; 85018; 85025; 85027; 85610; 85730; 86850; 86900; 86901; 87040; 87426; 93005; 93306; 96361; 96365; 96366; 96375; 96376; 97110; 97116; 97530; G0378; J2001; J2250; J2405; J2543; J3490; J7060

== ENCOUNTER 2020-04-10 15:38 | Inpatient (IN) | payer OTHER ==
[~2020-04-10] VITALS: Ht 165.1 cm; Wt 75.6 kg
[~2020-04-10 15:38] MED LIST changes: +LEVO50TA7 PO
[2020-04-10] MEDS ORDERED: SODIUM CHLORIDE 0.9% 1,000 ML IVB ONE (16:30)
[2020-04-10] MEDS ORDERED: ONDANSETRON HCL 4 MG/2 ML VIAL IV ONE (16:30)
[2020-04-10] MEDS ORDERED: PANTOPRAZOLE 40 MG/10 ML VIAL INJ IV ONE (17:15)
[2020-04-10 17:43] LABS: Magnesium 1.4 mg/dL (1.6-2.6)
[2020-04-10 17:45] LABS: Albumin 1.7 g/dL (3.4-5.0)
[2020-04-10 17:48] LABS: BUN/Creatinine Ratio 9.2; Bilirubin, Total 0.1 mg/dL (0.2-1.0); Total Protein 4.3 g/dL (6.4-8.2)
[2020-04-10 17:49] LABS: INR 1.18 (0.9-1.15); Partial Thromboplastin Time 26.3 sec (23.0-31.2)
[2020-04-10 18:12] LABS: Basophils # (auto) 0.1 10 ^3/uL (0-0.2); Eosinophils # (auto) 0.1 10 ^3/uL (0-0.8); Hemoglobin 9.1 g/dL (12.2-16.2); Lymphocytes # (auto) 1.1 10 ^3/uL (0.4-5.4); Monocytes # (auto) 0.9 10 ^3/uL (0-1.3); Monocytes % (auto) 10.2 % (0.0-12.0); Neutrophils # (auto) 6.4 10 ^3/uL (1.6-8.6); White Blood Cell 8.5 10^3/uL (4.4-10.8)
[2020-04-10 18:14] LABS: Basophils % (auto) 0.7 % (0.0-2.0); Eosinophils % (auto) 1.4 % (0.0-7.0); Hematocrit 26.7 % (36.0-46.0); Lymphocytes % (auto) 13.3 % (10.0-50.0); Mean Corpuscular Hemoglobin 31.4 pg (28.0-32.0); Mean Corpuscular Volume 92.3 fL (80.0-100.0); Neutrophils % (auto) 74.4 % (37.0-80.0); Platelet Count (auto) 486 10^3/uL (140-450); Red Blood Cells 2.89 10^6/uL (4.0-5.20); Red Cell Distribution Width 15.6 % (11.8-14.3)
[2020-04-10 18:21] LABS: Calcium 5.9 mg/dL (8.5-10.1); Potassium 2.4 mmol/L (3.5-5.1)
[2020-04-10] MEDS ORDERED: SODIUM CHLORIDE 0.9% 1,000 ML IV ONE (18:30)
[2020-04-10 18:38] LABS: Urine Bacteria FEW /hpf (None Seen); Urine Blood Negative /uL (Negative); Urine Hyaline Cast FEW /lpf (0 - 2); Urine Mucus FEW (None Seen); Urine Specific Gravity 1.008 (1.001-1.035); Urine WBC 37 /hpf (0 - 5)
[2020-04-10] MEDS ORDERED: cefTRIAXone 1GM/50ML D5W 50 ML IV ONE (18:45)
[2020-04-10] MEDS: MAGNESIUM SULFATE 1GM/100ML 100 ML IV SCH (18:45)
[2020-04-10] MEDS: POTASSIUM CHL 20MEQ/100ML 100 ML IV SCH (19:15)
[2020-04-10] MEDS ORDERED: AZITHROMYCIN 500MG/ 250ML 250 ML IV ONE (21:15)
[2020-04-10] MEDS ORDERED: CALCIUM GLUC 4.65meq/50ml D5AE 50 ML IV ONE (21:15)
[2020-04-10] MEDS ORDERED: ONDANSETRON HCL 4 MG/2 ML VIAL IV PRN (21:15)
[2020-04-10] MEDS ORDERED: MORPHINE SULF INJ 2 MG/ML SYRINGE 1ML IV PRN (21:15)
[2020-04-10] MEDS ORDERED: NITROGLYCERIN 0.4 MG SL TAB SL PRN (21:15)
[2020-04-10] MEDS ORDERED: MORPHINE SULFATE 4 MG/ML SYR/VIAL IV PRN (21:15)
[2020-04-10 22:02] LABS: Hematocrit 25.2 % (36.0-46.0); Hemoglobin 8.8 g/dL (12.2-16.2)
[2020-04-10] MEDS: PANTOPRAZOLE 40 MG/10 ML VIAL INJ IV SCH (22:56)
[2020-04-11] MEDS ORDERED: MAGNESIUM SULFATE 1GM/100ML 100 ML IV ONE (00:32)
[2020-04-11] MEDS: MAGNESIUM SULFATE 1GM/100ML 100 ML IV SCH (01:09)
[2020-04-11] MEDS: SODIUM CHLORIDE 0.9% 1,000 ML IV SCH ×3 (01:09→21:30)
[2020-04-11] MEDS: POTASSIUM CHL 20MEQ/100ML 100 ML IV SCH (01:09)
[2020-04-11 05:48] LABS: Basophils # (auto) 0.1 10 ^3/uL (0-0.2); Eosinophils # (auto) 0.2 10 ^3/uL (0-0.8); Eosinophils % (auto) 2.7 % (0.0-7.0); Hematocrit 25.3 % (36.0-46.0); Hemoglobin 8.8 g/dL (12.2-16.2); Lymphocytes # (auto) 1.4 10 ^3/uL (0.4-5.4); Lymphocytes % (auto) 16.6 % (10.0-50.0); Mean Corpuscular Hemoglobin 31.9 pg (28.0-32.0); Mean Corpuscular Hgb Conc. 34.7 g/dL (32.0-36.0); Monocytes # (auto) 0.9 10 ^3/uL (0-1.3); Monocytes % (auto) 10.9 % (0.0-12.0); Neutrophils # (auto) 5.6 10 ^3/uL (1.6-8.6); Neutrophils % (auto) 68.8 % (37.0-80.0); Platelet Count (auto) 432 10^3/uL (140-450); Red Blood Cells 2.75 10^6/uL (4.0-5.20); Red Cell Distribution Width 15.7 % (11.8-14.3); White Blood Cell 8.2 10^3/uL (4.4-10.8)
[2020-04-11 06:10] LABS: Albumin 1.8 g/dL (3.4-5.0); Calcium 7.1 mg/dL (8.5-10.1); Potassium 3.6 mmol/L (3.5-5.1)
[2020-04-11 06:14] LABS: BUN/Creatinine Ratio 7.9; Bilirubin, Total 0.2 mg/dL (0.2-1.0); Total Protein 4.6 g/dL (6.4-8.2)
[2020-04-11] MEDS: cefTRIAXone 1GM/50ML D5W 50 ML IV SCH (09:00)
[2020-04-11] MEDS: PANTOPRAZOLE 40 MG/10 ML VIAL INJ IV SCH ×2 (10:00→21:56)
[2020-04-11] MEDS ORDERED: GASTROGRAFIN 120 ML SOL ONE (11:21)
[2020-04-11 20:30] VITALS: BP 153/71
[2020-04-11] MEDS ORDERED: AZITHROMYCIN 500MG/ 250ML 250 ML IV SCH (21:00)
[2020-04-11 22:00] VITALS: BP 153/71
[2020-04-12] MEDS ORDERED: ATOR10TA PO (00:42)
[2020-04-12] MEDS ORDERED: METR500T PO (00:42)
[2020-04-12] MEDS ORDERED: BISO5TAB44 PO (00:42)
[2020-04-12] MEDS ORDERED: FAMO20TA10 PO (00:42)
[2020-04-12] MEDS ORDERED: LEVO-28 PO (00:42)
[2020-04-12 05:00] VITALS: BP 149/74
[2020-04-12 07:45] LABS: Basophils # (auto) 0.1 10 ^3/uL (0-0.2); Basophils % (auto) 0.9 % (0.0-2.0); Eosinophils # (auto) 0.3 10 ^3/uL (0-0.8); Eosinophils % (auto) 3.2 % (0.0-7.0); Hematocrit 27.7 % (36.0-46.0); Hemoglobin 9.2 g/dL (12.2-16.2); Lymphocytes # (auto) 1.3 10 ^3/uL (0.4-5.4); Lymphocytes % (auto) 14.3 % (10.0-50.0); Mean Corpuscular Hemoglobin 30.7 pg (28.0-32.0); Mean Corpuscular Hgb Conc. 33.4 g/dL (32.0-36.0); Mean Corpuscular Volume 92.2 fL (80.0-100.0); Monocytes # (auto) 0.9 10 ^3/uL (0-1.3); Monocytes % (auto) 9.8 % (0.0-12.0); Neutrophils # (auto) 6.8 10 ^3/uL (1.6-8.6); Neutrophils % (auto) 71.8 % (37.0-80.0); Platelet Count (auto) 442 10^3/uL (140-450); Red Blood Cells 3.01 10^6/uL (4.0-5.20); White Blood Cell 9.4 10^3/uL (4.4-10.8)
[2020-04-12 08:00] LABS: BUN/Creatinine Ratio 8.5; Calcium 7.6 mg/dL (8.5-10.1); Potassium 3.2 mmol/L (3.5-5.1)
[2020-04-12 09:00] VITALS: BP 161/79
[2020-04-12] MEDS: cefTRIAXone 1GM/50ML D5W 50 ML IV SCH ×2 (09:00→09:43)
[2020-04-12] MEDS: PANTOPRAZOLE 40 MG/10 ML VIAL INJ IV SCH ×2 (09:38→09:44)
[2020-04-12] MEDS: SODIUM CHLORIDE 0.9% 1,000 ML IV SCH (09:44)
[2020-04-12] MEDS ORDERED: FUROSEMIDE 40 MG/4 ML VIAL IV ONE (11:00)
[2020-04-12] MEDS ORDERED: POTASSIUM CHL 20 Meq TABLET PO ONE ×2 (11:00)
[2020-04-12 13:00] VITALS: BP 164/84
[2020-04-12 14:33] VITALS: BP 130/78
== END 2020-04-12 15:48 | disposition home health service (06) | DRG 378 ==
LOC: ER 15:38 → TELE 21:11 → TELE-CENTR 04-11 20:45
PROVIDERS: ADMIT Nurse Practitioner; ATTEND Internal Medicine
DX: K92.2 Gastrointestinal hemorrhage, unspecified (principal); E44.0 Moderate protein-calorie malnutrition; N39.0 Urinary tract infection, site not specified; K56.600 Partial intestinal obstruction, unspecified as to cause; E87.6 Hypokalemia; D64.9 Anemia, unspecified; E83.51 Hypocalcemia; Z20.822 Contact with and (suspected) exposure to COVID-19; I10 Essential (primary) hypertension; F17.210 Nicotine dependence, cigarettes, uncomplicated; I25.10 Atherosclerotic heart disease of native coronary artery without angina pectoris; E83.42 Hypomagnesemia; E03.9 Hypothyroidism, unspecified; E78.5 Hyperlipidemia, unspecified; Z88.8 Allergy status to other drugs, medicaments and biological substances; Z90.49 Acquired absence of other specified parts of digestive tract; Z79.899 Other long term (current) drug therapy; Z82.49 Family history of ischemic heart disease and other diseases of the circulatory system
CPT/HCPCS: 36415; 71045; 74176; 74250; 80048; 80053; 81001; 83605; 83690; 83735; 85014; 85018; 85025; 85610; 85730; 86850; 86900; 86901; 87040; 87081; 87426; 93005; 96361; 96365; 96367; 96368; 96375; 99291; C9113; G0378; J0610; J0696; J2405; J3480

== ENCOUNTER 2020-05-03 01:25 | Emergency (ER) | payer OTHER ==
[~2020-05-03] VITALS: Ht 167.6 cm; Wt 63.5 kg
[~2020-05-03 01:25] MED LIST changes: +ATOR10TA PO; -ATOR20TA50 PO; +BISO5TAB44 PO; +FAMO20TA10 PO; +LEVO-28 PO; -LEVO75TA6 PO; +METR500T PO
[2020-05-03 05:00] LABS: Urine Bacteria FEW /hpf (None Seen); Urine Blood Negative /uL (Negative); Urine Hyaline Cast FEW /lpf (0 - 2); Urine Mucus FEW (None Seen); Urine Specific Gravity 1.009 (1.001-1.035); Urine WBC 7 /hpf (0 - 5)
[2020-05-03 06:11] LABS: Basophils # (auto) 0 10 ^3/uL (0-0.2); Basophils % (auto) 0.2 % (0.0-2.0); Eosinophils # (auto) 0 10 ^3/uL (0-0.8); Eosinophils % (auto) 0.2 % (0.0-7.0); Hematocrit 35.6 % (36.0-46.0); Hemoglobin 11.8 g/dL (12.2-16.2); Lymphocytes # (auto) 0.4 10 ^3/uL (0.4-5.4); Lymphocytes % (auto) 2.2 % (10.0-50.0); Mean Corpuscular Hemoglobin 30.7 pg (28.0-32.0); Mean Corpuscular Hgb Conc. 33.2 g/dL (32.0-36.0); Mean Corpuscular Volume 92.5 fL (80.0-100.0); Monocytes # (auto) 0.6 10 ^3/uL (0-1.3); Monocytes % (auto) 3.2 % (0.0-12.0); Neutrophils # (auto) 18.3 10 ^3/uL (1.6-8.6); Neutrophils % (auto) 94.2 % (37.0-80.0); Nucleated Red Blood Cells % 0.1 %; Platelet Count (auto) 306 10^3/uL (140-450); Red Blood Cells 3.85 10^6/uL (4.0-5.20); Red Cell Distribution Width 14.9 % (11.8-14.3); White Blood Cell 19.4 10^3/uL (4.4-10.8)
[2020-05-03 06:29] LABS: Albumin 2.7 g/dL (3.4-5.0); Anion Gap 4 (5-15); Blood Urea Nitrogen 15 mg/dL (7-18); Calcium 8.9 mg/dL (8.5-10.1); Carbon Dioxide 26 mmol/L (21-32); Chloride 110 mmol/L (98-107); Glucose 108 mg/dL (74-106); Potassium 4.3 mmol/L (3.5-5.1); Sodium 140 mmol/L (136-145)
[2020-05-03 06:35] LABS: Alanine Aminotransferase 11 U/L (13-56); Alkaline Phosphatase 71 U/L (45-117); Aspartate Aminotransferase 13 U/L (15-37); BUN/Creatinine Ratio 19.2; Bilirubin, Total 0.2 mg/dL (0.2-1.0); GFR African American 91 mL/min; GFR Non-African American 75 mL/min; Total Protein 6.5 g/dL (6.4-8.2)
[2020-05-03] MEDS ORDERED: cefTRIAXone 1GM/50ML D5W 50 ML IV ONE (08:30)
[2020-05-03] MEDS ORDERED: metroNIDAZOLE 500MG/100ML 100 ML IV ONE (08:30)
[2020-05-03] MEDS ORDERED: HYDROcodone-ACET 5/325MG TAB PO ONE (10:00)
[2020-05-03 13:55] VITALS: BP 154/65
== END 2020-05-03 13:22 | disposition home or self-care (01) ==
LOC: ER 01:25 → EDBD 01:25 → ER 13:22
DX: N39.0 Urinary tract infection, site not specified (principal); R07.9 Chest pain, unspecified; D72.829 Elevated white blood cell count, unspecified; E78.5 Hyperlipidemia, unspecified; I10 Essential (primary) hypertension; F17.210 Nicotine dependence, cigarettes, uncomplicated; Z20.822 Contact with and (suspected) exposure to COVID-19
CPT/HCPCS: 36415; 71045; 74176; 80053; 81001; 83605; 83735; 84484; 85025; 87426; 93005; 96365; 96368; 99285; C9803; J0696; J3490; U0003

== ENCOUNTER 2022-11-15 08:46 | Emergency (ER) | payer OTHER ==
[~2022-11-15] VITALS: Ht 162.6 cm; Wt 54.6 kg
[~2022-11-15 08:46] MED LIST changes: -LEVO-28 PO; +LEVO500T91 PO; -LISI-648 PO; +LISI10TA34 PO
[2022-11-15 09:46] LABS: Basophils # (auto) 0.1 10 ^3/uL (0-0.2); Eosinophils # (auto) 0.2 10 ^3/uL (0-0.8); Eosinophils % (auto) 1.5 % (0.0-7.0); Hematocrit 40.7 % (36.0-46.0); Hemoglobin 13.6 g/dL (12.2-16.2); Lymphocytes # (auto) 2.2 10 ^3/uL (0.4-5.4); Lymphocytes % (auto) 21.3 % (10.0-50.0); Mean Corpuscular Hemoglobin 31.1 pg (28.0-32.0); Mean Corpuscular Hgb Conc. 33.5 g/dL (32.0-36.0); Mean Corpuscular Volume 92.7 fL (80.0-100.0); Monocytes # (auto) 0.6 10 ^3/uL (0-1.3); Monocytes % (auto) 5.7 % (0.0-12.0); Neutrophils # (auto) 7.3 10 ^3/uL (1.6-8.6); Neutrophils % (auto) 70.5 % (37.0-80.0); Red Blood Cells 4.39 10^6/uL (4.0-5.20); Red Cell Distribution Width 14.6 % (11.8-14.3); White Blood Cell 10.4 10^3/uL (4.4-10.8)
[2022-11-15 10:02] LABS: Chloride 106 mmol/L (98-107); Potassium 3.8 mmol/L (3.5-5.1); Sodium 139 mmol/L (136-145)
[2022-11-15 10:02] LABS: Urine Bacteria MANY /hpf (None Seen); Urine Blood TRACE /uL (Negative); Urine Clarity Clear (Clear); Urine Color Colorless (Yellow); Urine Hyaline Cast FEW /lpf (0 - 2); Urine Protein, UAD Negative (Negative); Urine Specific Gravity 1.007 (1.001-1.035); Urine Urobilinogen Normal (Negative); Urine WBC 9 /hpf (0 - 5); Urine pH 5.5 (5.0-8.0)
[2022-11-15 10:06] LABS: Calcium 9.7 mg/dL (8.7-10.4)
[2022-11-15 10:16] LABS: Alkaline Phosphatase 71 U/L (46-116)
[2022-11-15 10:17] LABS: Glucose 99 mg/dL (74-106)
[2022-11-15 10:19] LABS: Aspartate Aminotransferase 12 U/L (13-40)
[2022-11-15 10:20] LABS: Anion Gap 7 (5-15); Carbon Dioxide 26 mmol/L (20-30)
[2022-11-15 10:22] LABS: Bilirubin, Total 0.4 mg/dL (0.2-1.0)
[2022-11-15 10:37] LABS: Alanine Aminotransferase < 9 U/L (7-40)
[2022-11-15 10:55] LABS: Albumin 4.5 g/dL (3.2-4.8)
[2022-11-15] MEDS ORDERED: cloNIDine HCL 0.1 MG TAB PO ONE (11:30)
[2022-11-15] MEDS ORDERED: DOCUSATE SOD 100 MG CAP PO ONE (11:30)
[2022-11-15] MEDS ORDERED: cefTRIAXone SOD 1,000 MG VL IM ONE (11:30)
[2022-11-15] MEDS ORDERED: NITR-87 PO (11:31)
[2022-11-15] MEDS ORDERED: DOCU-94 PO (11:31)
[2022-11-15 12:20] LABS: BUN/Creatinine Ratio 11.8 (10.0-20.0); Blood Urea Nitrogen 13 mg/dL (9-23)
[2022-11-15 13:11] VITALS: BP 150/64; PULSE 58; RESP 18; TEMP 97.8; O2SAT 96
== END 2022-11-15 13:12 | disposition home or self-care (01) ==
LOC: ER 08:46
DX: N39.0 Urinary tract infection, site not specified (principal); I16.1 Hypertensive emergency; I10 Essential (primary) hypertension; E78.5 Hyperlipidemia, unspecified; F17.210 Nicotine dependence, cigarettes, uncomplicated; Z88.6 Allergy status to analgesic agent
CPT/HCPCS: 36415; 74018; 80053; 81001; 84484; 85025; 96372; 99284; J0696

== ENCOUNTER 2023-11-25 08:20 | Inpatient (IN) | payer OTHER ==
[~2023-11-25] VITALS: Ht 162.6 cm; Wt 63.9 kg
[~2023-11-25 08:20] MED LIST changes: +DOCU-94 PO; +LEVO75TA6 PO; +NITR-87 PO
[2023-11-25 08:45] VITALS: PULSE 51; RESP 14; O2SAT 97
[2023-11-25 09:14] LABS: Basophils # (auto) 0.1 10 ^3/uL (0-0.2); Eosinophils # (auto) 0.2 10 ^3/uL (0-0.8); Eosinophils % (auto) 3.2 % (0.0-7.0); Hematocrit 35.3 % (36.0-46.0); Hemoglobin 11.8 g/dL (12.2-16.2); Lymphocytes # (auto) 1.7 10 ^3/uL (0.4-5.4); Lymphocytes % (auto) 22.7 % (10.0-50.0); Mean Corpuscular Hemoglobin 30.8 pg (28.0-32.0); Mean Corpuscular Hgb Conc. 33.5 g/dL (32.0-36.0); Monocytes # (auto) 0.5 10 ^3/uL (0-1.3); Monocytes % (auto) 6.5 % (0.0-12.0); Neutrophils % (auto) 66.6 % (37.0-80.0); Platelet Count (auto) 209 10^3/uL (140-450); Red Blood Cells 3.84 10^6/uL (4.0-5.20); White Blood Cell 7.6 10^3/uL (4.4-10.8)
[2023-11-25 09:29] LABS: INR 1.04 (0.9-1.15); Partial Thromboplastin Time 27.3 SEC (24.5-34.5)
[2023-11-25 09:34] LABS: Alanine Aminotransferase < 9 U/L (7-40); Albumin 3.9 g/dL (3.2-4.8); Alkaline Phosphatase 70 U/L (46-116); Anion Gap 3 (5-15); Aspartate Aminotransferase 9 U/L (13-40); BUN/Creatinine Ratio 14.7 (10.0-20.0); Bilirubin, Total 0.3 mg/dL (0.2-1.0); Blood Urea Nitrogen 14 mg/dL (9-23); Calcium 9.5 mg/dL (8.7-10.4); Carbon Dioxide 28 mmol/L (20-30); Chloride 113 mmol/L (98-107); Glucose 93 mg/dL (74-106); Magnesium 2.1 mg/dL (1.6-2.6); Potassium 3.9 mmol/L (3.5-5.1); Sodium 144 mmol/L (136-145)
[2023-11-25] MEDS: NITROGLYCERIN 0.4 MG SL TAB SL ONE ×2 (10:11→13:18)
[2023-11-25] MEDS: cloNIDine HCL 0.1 MG TAB PO ONE (14:47)
[2023-11-25] MEDS ORDERED: NITROGLYCERIN 0.4 MG SL TAB SL PRN ×2 (15:30)
[2023-11-25 16:34] LABS: INR 1.07 (0.9-1.15); Prothrombin Time 11.3 sec (9.3-11.8)
[2023-11-25] MEDS ORDERED: PATIENTS OWN MEDICATION (Atorvastatin Calcium (Lipitor) 1 TAB) PO SCH (18:00)
[2023-11-25 20:00] VITALS: PULSE 52; RESP 16; O2SAT 99
[2023-11-25 21:48] VITALS: BP 146/54; PULSE 51; RESP 18; TEMP 97.8; O2SAT 94
[2023-11-25] MEDS ORDERED: ATORVASTATIN 20 MG TAB PO SCH (22:00)
[2023-11-25] MEDS ORDERED: ENOXAPARIN SOD 100 MG/1 ML SYRINGE SC SCH (22:00)
[2023-11-25 22:43] VITALS: BP 146/54; PULSE 51; RESP 18; TEMP 98; O2SAT 51
[2023-11-25] MEDS: ATORVASTATIN 20 MG TAB PO ONE (22:47)
[2023-11-25] MEDS: ENOXAPARIN SOD 100 MG/1 ML SYRINGE SC SCH (22:48)
[2023-11-26] VITALS (8 sets, daily range): BP systolic 131–171; BP diastolic 51–78; PULSE 47–60; RESP 18–20; TEMP 97.5–98.3; O2SAT 94–98
[2023-11-26] MEDS: ACETAMINOPHEN 325 MG TAB PO PRN (02:46)
[2023-11-26] MEDS: DOCUSATE SOD 100 MG CAP PO SCH (10:00)
[2023-11-26] MEDS ORDERED: PATIENTS OWN MEDICATION (Lisinopril 10 MG) PO SCH (10:00)
[2023-11-26] MEDS ORDERED: ASPirin 81 mg TAB PO SCH (10:00)
[2023-11-26] MEDS: LEVOTHYROXINE SODIUM 50 MCG TAB PO SCH (10:23)
[2023-11-26] MEDS: FAMOTIDINE 20 MG TAB PO SCH (11:16)
[2023-11-26] MEDS: LISINOPRIL 5 MG TAB PO SCH (11:17)
[2023-11-26] MEDS: amLODIPine BESYLATE 5 MG TAB PO SCH (11:17)
[2023-11-26] MEDS: ASPirin-EC 81 mg tab PO SCH (11:18)
[2023-11-26] MEDS: hydrALAZINE HCL 20 MG/ML VL IV ONE (18:27)
[2023-11-26] MEDS: ATORVASTATIN 20 MG TAB PO SCH (21:45)
[2023-11-27] VITALS (11 sets, daily range): BP systolic 127–180; BP diastolic 56–87; PULSE 52–107; RESP 14–18; TEMP 97.5–98.2; O2SAT 93–98
[2023-11-27] MEDS: hydrALAZINE HCL 20 MG/ML VL IV PRN (04:58)
[2023-11-27] MEDS: ONDANSETRON HCL 4 MG/2 ML VIAL IV PRN (05:45)
[2023-11-27] MEDS: SODIUM CHLORIDE 0.9% 1,000 ML IV SCH (15:45)
[2023-11-27 18:53] LABS: Urine Bacteria None Seen /hpf (None Seen)
[2023-11-27 19:37] LABS: Urine Blood TRACE /uL (Negative); Urine Clarity Clear (Clear); Urine Color Light-Yellow (Yellow); Urine Protein, UAD TRACE (Negative); Urine Specific Gravity 1.013 (1.001-1.035); Urine Urobilinogen Normal (Negative); Urine WBC <1 /hpf (0 - 5); Urine pH 5.5 (5.0-9.0)
[2023-11-28] VITALS (9 sets, daily range): BP systolic 142–159; BP diastolic 52–80; PULSE 69–82; RESP 17–20; TEMP 97.7–98.7; O2SAT 90–97
[2023-11-28] MEDS: HYDROcodone-ACET 5/325MG TAB PO PRN (09:21)
[2023-11-29] VITALS (7 sets, daily range): BP systolic 130–146; BP diastolic 57–72; PULSE 68–83; RESP 18–20; TEMP 97.7–98.5; O2SAT 92–96
== END 2023-11-29 15:23 | disposition home or self-care (01) | DRG 313 ==
LOC: EDSEX 08:20 → EDBD 08:20 → ER 08:20 → TELE 15:30 → ER 15:38 → TELE-WESTW 21:38
PROVIDERS: ADMIT Nurse Practitioner Family; ATTEND Internal Medicine
DX: R07.89 Other chest pain (principal); I50.32 Chronic diastolic (congestive) heart failure; I16.0 Hypertensive urgency; E03.9 Hypothyroidism, unspecified; E78.5 Hyperlipidemia, unspecified; I25.10 Atherosclerotic heart disease of native coronary artery without angina pectoris; F17.210 Nicotine dependence, cigarettes, uncomplicated; I25.2 Old myocardial infarction; Z79.82 Long term (current) use of aspirin; Z90.49 Acquired absence of other specified parts of digestive tract; Z82.49 Family history of ischemic heart disease and other diseases of the circulatory system; Z79.899 Other long term (current) drug therapy; I11.0 Hypertensive heart disease with heart failure
CPT/HCPCS: 36415; 71045; 80053; 81001; 83735; 83880; 84443; 84484; 85025; 85379; 85610; 85730; 93005; 93306; 96372; 97163; 99291; G0378; J2405